=== PATIENT | female | born 1990 | race Caucasian/White ===

== ENCOUNTER 2018-02-17 10:00 | Inpatient (IN) ==
[2018-02-17] MEDS ORDERED: Oxytocin 30 Units/500ml Premix 30 UNITS/500 ML BAG IV.SIG ONE (10:16)
[2018-02-17] MEDS ORDERED: Sodium Chlor 0.9% Inj 500 ML IV.SIG PRN (10:16)
[2018-02-17] MEDS ORDERED: Naloxone Inj 0.4 MG/ML Vial IV.PUSH PRN ×2 (10:16→17:41)
[2018-02-17] MEDS ORDERED: fentaNYL Citrate Inj 100 MCG/2 ML Ampul IV.PUSH PRN ×2 (10:16)
[2018-02-17] MEDS ORDERED: Penicillin G Potassium Inj 5,000,000 UNIT in Sodium Chloride 0.9% Inj 100 ML IV.SIG ONE (10:16)
[2018-02-17] MEDS ORDERED: Sod Chloride 0.9% Inj 1,000 ML IV.CONT PRN (10:16)
--- NOTE | 2018-02-17 10:24 | P.HPOB ---
History of Present Illness Service: labor and delivery Primary Care Physician: No Primary Care Physician Chief Complaint: 40+ weeks EGA with oligohydramnios History of Present Illness: 27 yo mwf with LMP unclear and EDC 02/14/18 at 40 and 4/7 weeks. Cervix 3 80/-2 with BBOW GROVER 3.5 GBS+ No symptoms of pre eclampsia, hypertension or labor during gestation. labs in chart and normal. Proven to 7 10 . For arom this am. Weeks Gestation:: 40 Para: 2 : 3 - Inpatient Certification I certify that the inpatient services were ordered in accordance with Medicare regulations governing the order. This includes certification that hospital inpatient services are reasonable and necessary and in the case of services not specified as inpatient-only under 42 CFR 419.22(n), that they are appropriately provided as inpatient services in accordance to with the 2-midnight benchmark under 43 CFR 412.3(e) Estimated Total Length of Stay (Days): 2 Plans for Post Hospital Care: Home Review of Systems All other systems reviewed negative except as stated in HPI Medications and Allergies Active Medications: Active Medications Citric Acid/Sodium Citrate (Sodium Citrate/Citric Acid Liq) 30 ml PO MASH GRINDER ANNITA Stop: 02/21/18 10:29 Fentanyl Citrate (Fentanyl Inj) 50 mcg IV.PUSH Q1H PRN PRN Reason: Pain Scale 3 - 5 Fentanyl Citrate (Fentanyl Inj) 100 mcg IV.PUSH Q1H PRN PRN Reason: PAIN SCALE 6 TO 10 Lactated Ringer's (Lr 1000 Ml Inj) 1,000 mls @ 125 mls/hr IV.CONT .Q8H ANNITA Sodium Chloride (Ns Inj) 500 mls @ 1,000 mls/hr IV.SIG UNSCH PRN PRN Reason: SEE LABEL COMMENTS Sodium Chloride (Ns Inj) 1,000 mls @ 100 mls/hr IV.CONT .Q10H PRN PRN Reason: SEE LABEL COMMENTS Oxytocin (Pitocin 30 Units/Ns 500 Ml Premix) 30 units in 500 mls @ 999 mls/hr IV.SIG BOLUS ONE Stop: 02/17/18 10:46 Penicillin G Potassium 2,500, (000 unit/ Sodium Chloride) 100 mls @ 200 mls/hr IV.SIG Q4H ANNITA Lactated Ringer's (Lr 1000 Ml Inj) 1,000 mls @ 3,000 mls/hr IV.SIG UNSCH PRN PRN Reason: compromise or epidural Penicillin G Potassium 5,000, (000 unit/ Sodium Chloride) 100 mls @ 200 mls/hr IV.SIG ONCE ONE Stop: 02/17/18 10:45 Lidocaine HCl (Xylocaine 1% Inj) 0.1 ml I-DERMAL PRN PRN PRN Reason: For IV start Stop: 02/20/18 10:15 Lidocaine HCl (Xylocaine 1% Inj) 10 ml INFILTRATN PRN PRN PRN Reason: For episiotomy repair Stop: 02/19/18 10:15 Mineral Oil (Muri-Lube Oil) 10 ml TOPICAL PRN PRN PRN Reason: PRN perineal massage Naloxone HCl (Narcan Inj) 0.1 mg IV.PUSH Q2M PRN PRN Reason: for opiate reversal Allergies Allergy/AdvReac Type Severity Reaction Status Date / Time No Known Allergies Allergy Uncoded 03/06/16 10:24 Exam - Constitutional no acute distress - Routine HEENT Exam Head: Present: normocephalic Eye: Present: EOMI, PERRL ENT: Present: mucous membranes moist - Routine Respiratory Exam Present: CTA bilaterally - Routine Cardiovascular Exam Present: RRR - Routine Abdominal Exam Present: soft - Routine Extremities Exam Present: edema - Routine Neurological Exam Present: alert, oriented X3 Results - Labs Group B Strep: Positive Caprini VTE Risk Assessment Caprini VTE Risk Assessment: No/Low Risk (score <= 1) Caprini Risk Assessment Model: Point Value = 1 Point Value = 2 Point Value = 3 Point Value = 5 Age 41-60 Minor surgery BMI > 25 kg/m2 Swollen legs Varicose veins or History of unexplained or recurrent spontaneous Oral contraceptives or hormone replacement Sepsis (< 1 month) Serious lung disease, including pneumonia (< 1 month) Abnormal pulmonary function Acute myocardial infarction Congestive heart failure (< 1 month) History of inflammatory bowel disease Medical patient at bed rest Age 61-74 Arthroscopic surgery Major open surgery (> 45 min) Laparoscopic surgery (> 45 min) Malignancy Confined to bed (> 72 hours) Immobilizing plaster cast Central venous access Age >= 75 History of VTE Family history of VTE Factor V Leiden Prothrombin [id number] Lupus anticoagulant Anticardiolipin antibodies Elevated serum homocysteine Heparin-induced thrombocytopenia Other congenital or acquired thrombophilia Stroke (< 1 month) Elective arthroplasty Hip, pelvis, or leg fracture Acute spinal cord injury (< 1 month) Prophylaxis Regimen: Total Risk Factor Score Risk Level Prophylaxis Regimen 0-1 Low Early ambulation 2 Moderate Order ONE of the following: *Sequential Compression Device (SCD) *Heparin 5000 units SQ BID 3-4 Higher Order ONE of the following medications: *Heparin 5000 units SQ TID *Enoxaparin/Lovenox 40 mg SQ daily (WT < 150 kg, CrCl > 30 mL/min) *Enoxaparin/Lovenox 30 mg SQ daily (WT < 150 kg, CrCl > 10-29 mL/min) *Enoxaparin/Lovenox 30 mg SQ BID (WT < 150 kg, CrCl > 30 mL/min) AND/OR *Sequential Compression Device (SCD) 5 or more Highest Order ONE of the following medications: *Heparin 5000 units SQ TID (Preferred with Epidurals) *Enoxaparin/Lovenox 40 mg SQ daily (WT < 150 kg, CrCl > 30 mL/min) *Enoxaparin/Lovenox 30 mg SQ daily (WT < 150 kg, CrCl > 10-29 mL/min) *Enoxaparin/Lovenox 30 mg SQ BID (WT < 150 kg, CrCl > 30 mL/min) AND *Sequential Compression Device (SCD) Assessment and Plan - Diagnosis (1) 40 weeks gestation of Code(s): Z3A.40 - 40 weeks gestation of Status: Acute (2) GBS (group B Streptococcus carrier), +RV culture, currently Code(s): O99.820 - Streptococcus B carrier state complicating Status : Acute - Plan AROM when settled and pitocin and/or epidural as needed anticipate
[2018-02-17] MEDS ORDERED: Citric Acid/Sodium Citrate Liq 30 ML UDC PO SCH (10:30)
[2018-02-17] MEDS ORDERED: Sodium Chloride 0.9% 2 ML Flush PRN IV.FLUSH (10:30)
[2018-02-17 11:13] LABS: Baso # (Auto) 0.1 th/mm3 (0.0-0.2); Baso % (Auto) 0.3 % (0.0-2.0); Eos # (Auto) 0.1 th/mm3 (0.0-0.4); Eos % (Auto) 0.6 % (0.0-4.0); Hematocrit 36.2 % (35.0-46.0); Hemoglobin 11.9 gm/dL (11.6-15.3); Lymph # (Auto) 2.9 th/mm3 (1.0-4.8); Lymph % (Auto) 18.6 % (9.0-44.0); Mean Corpuscular Hemoglobin 29.4 pg (27.0-34.0); Mean Corpuscular Volume 89.3 fL (80.0-100.0); Mean Platelet Volume 8.7 fL (7.0-11.0); Mono # (Auto) 1.1 th/mm3 (0.0-0.9); Mono % (Auto) 7.4 % (0.0-8.0); Neut # (Auto) 11.2 th/mm3 (1.8-7.7); Neut % (Auto) 73.1 % (16.0-70.0); Platelet Count 219 th/mm3 (150-450); Red Blood Count 4.05 mil/mm3 (4.00-5.30); Red Cell Distribution Width 13.7 % (11.6-17.2); White Blood Count 15.4 th/mm3 (4.0-11.0)
[2018-02-17 11:28] LABS: Amorphous Sediment,Urine Moderate /hpf; Bacteria,Urine Occasional /hpf; Bilirubin,Urine Negative (Negative); Clarity,Urine Cloudy (Clear); Color,Urine Yellow (Yellw/Straw); Glucose,Urine (UA) Negative (Negative); Leukocyte Esterase,Urine Small (Negative); Mucus,Urine Few /lpf (Occasional); Nitrite,Urine Negative (Negative); Specific Gravity,Urine 1.012 (1.002-1.035); Squamous Epithelial Cell,Urine 2 /hpf (0-5)
[2018-02-17 11:29] LABS: Amphetamine Urine With Conf Neg (Neg); Benzodiazepine Urine With Conf Neg (Neg)
[2018-02-17] MEDS ORDERED: Oxytocin 30 Units/500ml Premix 30 UNITS/500 ML BAG IV.SIG PRN (13:52)
[2018-02-17] MEDS: Penicillin G Potassium Inj 2,500,000 UNIT in Sodium Chlor 0.9% Inj 100 ML IV.SIG SCH (14:44)
[2018-02-17] MEDS ORDERED: fentaNYL 2MCG-Bupiv 0.125% Epi 150 ML EPIDURAL ONE (15:46)
[2018-02-17] MEDS ORDERED: Lidocaaine 1.5%/Epinephrine 1:200,000 PF Inj 5 ML Amp ONE ×2 (15:55→16:43)
[2018-02-17] MEDS ORDERED: Lidocaine PF 1% Inj 5 ML Vial ONE ×2 (15:56→15:57)
[2018-02-17] MEDS ORDERED: Diphtheria/Tetanus/Pertussis Vaccine Inj 0.5 ML Syringe IM ONE (16:00)
[2018-02-17] MEDS ORDERED: fentaNYL Citrate Inj 100 MCG/2 ML Ampul EPIDURAL ONE (17:00)
--- NOTE | 2018-02-17 17:40 | P.OBDELI ---
Weeks Gestation: 40 Patient Started Active Labor: Yes Medical Induction of Labor: Yes Artificial Rupture of Membrane: Yes Anesthesia: Epidural Episiotomy: none Vaginal Delivery: Normal Presentation: Occiput anterior Nuchal Cord: None Delayed Cord Clamping (45 sec): Yes Placenta: Spontaneous delivery, Intact, 3 vessel cord Laceration: None Estimated blood loss (mL): 200 : Female Infant Female A Infant Delivery Date: 02/17/18 Delivery Time: 17:40 score (1 min): 9 score (5 min): 9
[2018-02-17] MEDS ORDERED: Witch Hazel 50%/Glyderin 12.5% 40 Pad Jar RECTAL PRN (17:41)
[2018-02-17] MEDS ORDERED: Bisacodyl 10 MG Supp RECTAL PRN (17:41)
[2018-02-17] MEDS ORDERED: Benzocaine 20% Top Spray 60 ML Can TOPICAL PRN (17:41)
[2018-02-17] MEDS ORDERED: fentaNYL 2MCG-Bupiv 0.125% Epi 150 ML EPIDURAL PRN (18:41)
[2018-02-17] MEDS ORDERED: Oxytocin 30 Units/500ml Premix 30 UNITS/500 ML BAG IV.CONT PRN (18:45)
[2018-02-17] MEDS ORDERED: Zolpidem Tartrate 5 MG Tablet PO PRN (21:00)
[2018-02-17] MEDS: Senna/Docusate Sodium 8.6/50 MG Tablet PO SCH (21:44)
[2018-02-17] MEDS: Sodium Chloride 0.9% 2 ML Flush BID IV.FLUSH SCH (21:45)
[2018-02-18] MEDS: Acetaminophen 325 MG Tablet PO PRN ×2 (01:10→18:23)
--- NOTE | 2018-02-18 07:53 | P.PNOB ---
Subjective Post day: 1 Interval history: doing well, min bleeding, mild cramping. baby nursing Objective Vital Signs/I&O: Vital Signs 02/17/18 10:34 02/17/18 14:10 02/17/18 14:12 Temperature 98.0 F 98.0 F Pulse Rate 101 H 91 H Respiratory Rate 18 18 Blood Pressure 111/76 119/64 02/17/18 15:28 02/17/18 15:30 02/17/18 15:58 Temperature Pulse Rate 74 75 83 Respiratory Rate 18 Blood Pressure 119/71 116/80 142/76 H 02/17/18 16:06 02/17/18 16:10 02/17/18 16:16 Temperature Pulse Rate 82 74 74 Respiratory Rate Blood Pressure 127/69 130/74 108/57 L 02/17/18 16:25 02/17/18 16:31 02/17/18 16:36 Temperature Pulse Rate 73 79 77 Respiratory Rate Blood Pressure 105/51 L 120/49 L 136/75 02/17/18 17:05 02/17/18 17:10 02/17/18 17:20 Temperature Pulse Rate 70 100 H 92 H Respiratory Rate Blood Pressure 131/67 130/72 135/80 02/17/18 17:26 02/17/18 17:44 02/17/18 17:45 Temperature 97.9 F Pulse Rate 101 H 71 Respiratory Rate 18 Blood Pressure 124/68 122/53 L 02/17/18 18:00 02/17/18 18:01 02/17/18 18:06 Temperature Pulse Rate 71 Respiratory Rate 18 18 Blood Pressure 106/55 L 02/17/18 18:30 02/17/18 18:32 02/17/18 19:00 Temperature Pulse Rate 60 84 Respiratory Rate 16 16 Blood Pressure 116/58 L 93/49 L 02/17/18 19:14 02/17/18 19:16 02/17/18 19:30 Temperature 98.0 F Pulse Rate 68 76 Respiratory Rate 18 18 Blood Pressure 120/76 124/62 02/17/18 19:31 02/17/18 20:00 02/17/18 20:30 Temperature 98.2 F Pulse Rate 71 67 Respiratory Rate 18 18 Blood Pressure 118/68 112/69 Result Diagrams: 02/17/18 10:45 Objective Remarks: GENERAL: Well-nourished, well-developed patient. CARDIOVASCULAR: Regular rate and rhythm without murmurs, gallops, or rubs. RESPIRATORY: Breath sounds equal bilaterally. No accessory muscle use. ABDOMEN/GI: Abdomen soft, non-tender. Fundus: Firm, non-tender at umbilicus. GENITOURINARY: Light to moderate bleeding. EXTREMITIES: No cyanosis or edema, non-tender, without signs of DVT. Medications and IVs: Active Medications Acetaminophen (Tylenol) 650 mg PO Q4H PRN PRN Reason: PAIN SCALE 1 TO 2 Last Admin: 02/18/18 01:10 Dose: 650 mg Al Hydroxide/Mg Hydroxide (Milk Of Magnesia Liq) 30 ml PO Q12H PRN PRN Reason: Mild Constipation Benzocaine (Americaine 20% Top Reva) 1 spray TOPICAL Q4H PRN PRN Reason: For Perineum Discomfort Last Admin: 02/17/18 21:43 Dose: 1 spray Bisacodyl (Dulcolax Supp) 10 mg RECTAL DAILY PRN PRN Reason: SEVERE CONSITIPATION Citric Acid/Sodium Citrate (Sodium Citrate/Citric Acid Liq) 30 ml PO [employer] [facility] Stop: 02/21/18 10:29 Ephedrine Sulfate (Ephedrine/Ns Syringe) 10 mg IV.PUSH UNSCH PRN PRN Reason: SEE LABEL COMMENTS Stop: 02/18/18 18:41 Fentanyl Citrate (Fentanyl Inj) 50 mcg IV.PUSH Q1H PRN PRN Reason: Pain Scale 3 - 5 Fentanyl Citrate (Fentanyl Inj) 100 mcg IV.PUSH Q1H PRN PRN Reason: PAIN SCALE 6 TO 10 Lactated Ringer's (Lr 1000 Ml Inj) 1,000 mls @ 125 mls/hr IV.CONT .Q8H [facility] Last Admin: 02/17/18 10:53 Dose: 125 mls/hr Sodium Chloride (Ns Inj) 500 mls @ 1,000 mls/hr IV.SIG UNSCH PRN PRN Reason: SEE LABEL COMMENTS Sodium Chloride (Ns Inj) 1,000 mls @ 100 mls/hr IV.CONT .Q10H PRN PRN Reason: SEE LABEL COMMENTS Penicillin G Potassium 2,500, (000 unit/ Sodium Chloride) 100 mls @ 200 mls/hr IV.SIG Q4H [facility] Last Admin: 02/17/18 14:44 Dose: 200 mls/hr Lactated Ringer's (Lr 1000 Ml Inj) 1,000 mls @ 3,000 mls/hr IV.SIG UNSCH PRN PRN Reason: compromise or epidural Oxytocin (Pitocin 30 Units/Ns 500 Ml Premix) 30 units in 500 mls @ 2 mls/hr IV.SIG TITRATE PRN; Protocol PRN Reason: For induction of labor Last Admin: 02/17/18 14:10 Dose: 2 milliunit/min, 2 mls/hr Oxytocin (Pitocin 30 Units/Ns 500 Ml Premix) 30 units in 500 mls @ 100 mls/hr IV.CONT UNSCH PRN PRN Reason: Heavy bleeding Fentanyl/Bupivacaine/Sodium Chlor (Fentanyl 2 Mcg-Bupiv 0.125% Epi) 150 mls @ 12 mls/hr EPIDURAL PRN PRN PRN Reason: for Labor Pain Ibuprofen (Motrin) 800 mg PO Q8H PRN PRN Reason: For Cramping Last Admin: 02/18/18 03:37 Dose: 800 mg Lactulose (Lactulose Liq) 30 ml PO DAILY PRN PRN Reason: SEVERE CONSITIPATION Lidocaine HCl (Xylocaine 1% Inj) 0.1 ml I-DERMAL PRN PRN PRN Reason: For IV start Stop: 02/20/18 10:15 Lidocaine HCl (Xylocaine 1% Inj) 10 ml INFILTRATN PRN PRN PRN Reason: For episiotomy repair Stop: 02/19/18 10:15 Mineral Oil (Muri-Lube Oil) 10 ml TOPICAL PRN PRN PRN Reason: PRN perineal massage Miscellaneous Information (Misc Information) 1 each OTHER UNSCH PRN PRN Reason: SEE LABEL COMMENTS Stop: 02/18/18 18:41 Miscellaneous Information (Misc Information) 1 each OTHER UNSCH PRN PRN Reason: SEE LABEL COMMENTS Stop: 02/18/18 18:41 Naloxone HCl (Narcan Inj) 0.1 mg IV.PUSH Q2M PRN PRN Reason: for opiate reversal Naloxone HCl (Narcan Inj) 0.1 mg IV.PUSH Q2M PRN PRN Reason: for opiate reversal Ondansetron HCl (Zofran Odt) 4 mg PO Q6H PRN PRN Reason: NAUSEA OR VOMITING Senna/Docusate Sodium (Felicia-Colace) 1 tab PO BID ANNITA Last Admin: 02/17/18 21:44 Dose: 1 tab Sennosides (Senokot) 17.2 mg PO Q12H PRN PRN Reason: Moderate Constipation Sodium Chloride (Ns Flush) 2 ml IV.FLUSH BID [facility] Last Admin: 02/17/18 21:45 Dose: 2 ml Sodium Chloride (Ns Flush) 2 ml IV.FLUSH PRN PRN PRN Reason: FLUSH AFTER USING IV ACCESS Sodium Chloride (Ns Flush) 2 ml IV.FLUSH BID [facility] Last Admin: 02/18/18 03:59 Dose: Not Given Sodium Chloride (Ns Flush) 2 ml IV.FLUSH PRN PRN PRN Reason: FLUSH AFTER USING IV ACCESS Witch Shayla/Glycerin (Tucks Pads) 1 applicatio RECTAL QID PRN PRN Reason: HEMORRHOIDS Last Admin: 02/17/18 21:43 Dose: 1 applicatio Zolpidem Tartrate (Ambien) 5 mg PO HS PRN PRN Reason: SLEEP Assessment and Plan - Diagnosis (1) 40 weeks gestation of Code(s): Z3A.40 - 40 weeks gestation of Status: Acute (2) GBS (group B Streptococcus carrier), +RV culture, currently Code(s): O99.820 - Streptococcus B carrier state complicating Status : Acute - Plan ppd 1 continue routine supportive care dispo home tomorrow
[2018-02-18] MEDS: Measles/Mumps/Rubella Vaccine Inj 0.5 ML Vial SQ ONE (07:56)
[2018-02-18] MEDS: Sodium Chloride 0.9% 2 ML Flush BID IV.FLUSH SCH (11:05)
[2018-02-18] MEDS: Penicillin G Potassium Inj 2,500,000 UNIT in Sodium Chlor 0.9% Inj 100 ML IV.SIG SCH ×4 (11:06→19:27)
[2018-02-18] MEDS: Senna/Docusate Sodium 8.6/50 MG Tablet PO SCH (11:54)
[2018-02-19] MEDS: Acetaminophen 325 MG Tablet PO PRN ×2 (00:20→08:56)
--- NOTE | 2018-02-19 07:12 | P.PNOB ---
Subjective Post day: 2 Interval history: doing well, min bleeding. Can't leave until after Objective Vital Signs/I&O: Vital Signs 02/18/18 08:00 02/18/18 20:05 Temperature 97.9 F 98.0 F Pulse Rate 81 67 Respiratory Rate 20 18 Blood Pressure 110/67 105/65 Result Diagrams: 02/17/18 10:45 Objective Remarks: GENERAL: Well-nourished, well-developed patient. CARDIOVASCULAR: Regular rate and rhythm without murmurs, gallops, or rubs. RESPIRATORY: Breath sounds equal bilaterally. No accessory muscle use. ABDOMEN/GI: Abdomen soft, non-tender. Fundus: Firm, non-tender at umbilicus. GENITOURINARY: Light to moderate bleeding. EXTREMITIES: No cyanosis or edema, non-tender, without signs of DVT. Medications and IVs: Active Medications Acetaminophen (Tylenol) 650 mg PO Q4H PRN PRN Reason: PAIN SCALE 1 TO 2 Last Admin: 02/19/18 00:20 Dose: 650 mg Al Hydroxide/Mg Hydroxide (Milk Of Magnesia Liq) 30 ml PO Q12H PRN PRN Reason: Mild Constipation Benzocaine (Americaine 20% Top [place]) 1 spray TOPICAL Q4H PRN PRN Reason: For Perineum Discomfort Last Admin: 02/17/18 21:43 Dose: 1 spray Bisacodyl (Dulcolax Supp) 10 mg RECTAL DAILY PRN PRN Reason: SEVERE CONSITIPATION Citric Acid/Sodium Citrate (Sodium Citrate/Citric Acid Liq) 30 ml PO [employer] [facility] Stop: 02/21/18 10:29 Fentanyl Citrate (Fentanyl Inj) 50 mcg IV.PUSH Q1H PRN PRN Reason: Pain Scale 3 - 5 Fentanyl Citrate (Fentanyl Inj) 100 mcg IV.PUSH Q1H PRN PRN Reason: PAIN SCALE 6 TO 10 Lactated Ringer's (Lr 1000 Ml Inj) 1,000 mls @ 125 mls/hr IV.CONT .Q8H [facility] Last Admin: 02/18/18 13:11 Dose: Not Given Sodium Chloride (Ns Inj) 500 mls @ 1,000 mls/hr IV.SIG UNSCH PRN PRN Reason: SEE LABEL COMMENTS Sodium Chloride (Ns Inj) 1,000 mls @ 100 mls/hr IV.CONT .Q10H PRN PRN Reason: SEE LABEL COMMENTS Penicillin G Potassium 2,500, (000 unit/ Sodium Chloride) 100 mls @ 200 mls/hr IV.SIG Q4H [facility] Last Admin: 02/18/18 19:27 Dose: Not Given Lactated Ringer's (Lr 1000 Ml Inj) 1,000 mls @ 3,000 mls/hr IV.SIG UNSCH PRN PRN Reason: compromise or epidural Oxytocin (Pitocin 30 Units/Ns 500 Ml Premix) 30 units in 500 mls @ 2 mls/hr IV.SIG TITRATE PRN; Protocol PRN Reason: For induction of labor Last Admin: 02/17/18 14:10 Dose: 2 milliunit/min, 2 mls/hr Oxytocin (Pitocin 30 Units/Ns 500 Ml Premix) 30 units in 500 mls @ 100 mls/hr IV.CONT UNSCH PRN PRN Reason: Heavy bleeding Fentanyl/Bupivacaine/Sodium Chlor (Fentanyl 2 Mcg-Bupiv 0.125% Epi) 150 mls @ 12 mls/hr EPIDURAL PRN PRN PRN Reason: for Labor Pain Ibuprofen (Motrin) 800 mg PO Q8H PRN PRN Reason: For Cramping Last Admin: 02/19/18 05:39 Dose: 800 mg Lactulose (Lactulose Liq) 30 ml PO DAILY PRN PRN Reason: SEVERE CONSITIPATION Lidocaine HCl (Xylocaine 1% Inj) 0.1 ml I-DERMAL PRN PRN PRN Reason: For IV start Stop: 02/20/18 10:15 Lidocaine HCl (Xylocaine 1% Inj) 10 ml INFILTRATN PRN PRN PRN Reason: For episiotomy repair Stop: 02/19/18 10:15 Mineral Oil (Muri-Lube Oil) 10 ml TOPICAL PRN PRN PRN Reason: PRN perineal massage Naloxone HCl (Narcan Inj) 0.1 mg IV.PUSH Q2M PRN PRN Reason: for opiate reversal Naloxone HCl (Narcan Inj) 0.1 mg IV.PUSH Q2M PRN PRN Reason: for opiate reversal Ondansetron HCl (Zofran Odt) 4 mg PO Q6H PRN PRN Reason: NAUSEA OR VOMITING Senna/Docusate Sodium (Felicia-Colace) 1 tab PO BID [facility] Last Admin: 02/18/18 11:54 Dose: 1 tab Sennosides (Senokot) 17.2 mg PO Q12H PRN PRN Reason: Moderate Constipation Sodium Chloride (Ns Flush) 2 ml IV.FLUSH BID [facility] Last Admin: 02/18/18 11:05 Dose: Not Given Sodium Chloride (Ns Flush) 2 ml IV.FLUSH PRN PRN PRN Reason: FLUSH AFTER USING IV ACCESS Sodium Chloride (Ns Flush) 2 ml IV.FLUSH BID [facility] Last Admin: 02/18/18 11:05 Dose: 2 ml Sodium Chloride (Ns Flush) 2 ml IV.FLUSH PRN PRN PRN Reason: FLUSH AFTER USING IV ACCESS Witch Shayla/Glycerin (Tucks Pads) 1 applicatio RECTAL QID PRN PRN Reason: HEMORRHOIDS Last Admin: 02/17/18 21:43 Dose: 1 applicatio Zolpidem Tartrate (Ambien) 5 mg PO HS PRN PRN Reason: SLEEP Assessment and Plan - Diagnosis (1) 40 weeks gestation of Code(s): Z3A.40 - 40 weeks gestation of Status: Acute (2) GBS (group B Streptococcus carrier), +RV culture, currently Code(s): O99.820 - Streptococcus B carrier state complicating Status : Acute (3) (spontaneous vaginal delivery) Code(s): O80 - Encounter for full-term uncomplicated delivery Status: Acute - Plan ppd 2 continue routine supportive care dispo home today
[2018-02-19] MEDS: Senna/Docusate Sodium 8.6/50 MG Tablet PO SCH (08:56)
[2018-02-19 19:50] VITALS: BP 117/66; PULSE 67; RESP 18; TEMP 98.2
== END 2018-02-19 20:35 | disposition home or self-care (01) ==
LOC: H2E 10:00 → H1EA 20:15
PROVIDERS: ADMIT Obstetrics & Gynecology; ATTEND Obstetrics & Gynecology